=== PATIENT | male | born 1955 | race Hispanic/Latino ===

== ENCOUNTER 2018-03-23 15:18 | Inpatient (IN) | payer OTHER ==
--- NOTE | 2018-03-23 17:24 | C.PDOC ---
History Of Present Illness 62 y/o male presents to ED requesting detox from ETOH. Patient reports last drink earlier today and denies chest pain, nausea, vomiting, tremors, SI/HI or any other complaints at this time. <Jai Roach - Last Filed: 03/23/18 17:26> History Per: Patient History/Exam Limitations: no limitations Onset/Duration Of Symptoms: Days Current Symptoms Are (Timing): Still Present Suicide/Self Injury Attempted (Context): None Modifying Factor(s): Alcohol <Jai Roach - Last Filed: 03/23/18 17:26> <Praneeth Renee - Last Filed: 03/24/18 01:46> Time Seen by Provider: 03/23/18 16:40 Chief Complaint (Nursing): Substance Abuse Past Medical History Reviewed: Historical Data, Nursing Documentation, Vital Signs Vital Signs: Last Vital Signs Temp 98.2 F 03/23/18 16:12 Pulse 96 H 03/23/18 16:12 Resp 15 03/23/18 16:12 BP Pulse Ox 96 03/23/18 16:12 - Medical History PMH: No Chronic Diseases Surgical History: No Surg Hx Family History: States: No Known Family Hx - Social History Hx Alcohol Use: Yes Hx Substance Use: No - Immunization History Hx Tetanus Toxoid Vaccination: No Hx Influenza Vaccination: No Hx Pneumococcal Vaccination: No <Jai Roach - Last Filed: 03/23/18 17:26> Vital Signs: Last Vital Signs Temp 98 F 03/23/18 20:35 Pulse 90 03/24/18 01:30 Resp 16 03/24/18 01:30 BP 118/70 03/24/18 01:30 Pulse Ox 98 03/24/18 01:30 <Praneeth Renee - Last Filed: 03/24/18 01:46> Review Of Systems Except As Marked, All Systems Reviewed And Found Negative. Cardiovascular: Negative for: Chest Pain Gastrointestinal: Negative for: Nausea, Vomiting Psych: Positive for: Other (Substance abuse). Negative for: Suicidal ideation, Withdrawal <Jai Roach - Last Filed: 03/23/18 17:26> Physical Exam - Physical Exam Additional Physical Exam Comments: Constitutional: No acute distress. ETOH on breath Head: Normocephalic. Atraumatic. Eyes: PERRL. ENT: Moist mucous membranes. Neck: Supple. Cardiovascular: Regular rate. Radial pulse 2+ bilaterally. Chest: No tenderness. Respiratory: Clear to auscultation bilaterally. GI: Soft. Nontender. Nondistended. Back: No CVA tenderness. Musculoskeletal: No tenderness or swelling of extremities. Skin: No rash. Neurologic: Alert, no focal deficit. <Jai Roach - Last Filed: 03/23/18 17:26> ED Course And Treatment O2 Sat by Pulse Oximetry: 96 (RA) Pulse Ox Interpretation: Normal <Jai Roach - Last Filed: 03/23/18 17:26> - Laboratory Results Result Diagrams: 03/23/18 19:32 03/23/18 19:32 Pulse Ox Interpretation: Normal <Praneeth Renee - Last Filed: 03/24/18 01:46> Disposition <Jai Roach Last Filed: 03/23/18 17:26> Discussed With : Davian Mccabe Comment: accepted the pt on his service and took over the care at 1:42 AM Doctor Will See Patient In The: Hospital Counseled Patient/Family Regarding: Studies Performed, Diagnosis - Disposition Disposition Time: 01:00 - POA Present On Arrival: None <Praneeth Renee - Last Filed: 03/24/18 01:46> - Disposition Disposition: HOSPITALIZED Condition: FAIR Forms: [facility] (Lithuanian) - Clinical Impression Clinical Impression: Alcohol use disorder - Scribe Statement The provider has reviewed the documentation as recorded by the Margaretibyecenia Isabel All medical record entries made by the Scribe were at my direction and personally dictated by me. I have reviewed the chart and agree that the record accurately reflects my personal performance of the history, physical exam, medical decision making, and the department course for this patient. I have also personally directed, reviewed, and agree with the discharge instructions and disposition. <Jai Roach - Last Filed: 03/23/18 17:26> Decision To Admit <Jai Roach Filed: 03/23/18 17:26> - Pt Status Changed To: Hospital Disposition Of: Inpatient - Admit Certification Admit to Inpatient:: After my assessment, the patient will require hospitalization for at least two midnights. This is because of the severity of symptoms shown, intensity of services needed, and/or the medical risk in this patient being treated as an outpatient. - InPatient: Physician Admission Certification: I certify that this patient requires 2 or more midnights of care for the following reason:: After my assessment, the patient will require hospitalization for at least two midnights. This is because of the severity of symptoms shown, intensity of services needed, and/or the medical risk in this patient being treated as an outpatient. - . Bed Request Type: Detox Admitting Physician: Davian Mccabe <Praneeth Renee - Last Filed: 03/24/18 01:46> - . Patient Diagnosis: Alcohol use disorder
[2018-03-23 19:42] LABS: BASO % 0.6 % (0.0-2.0); EOS # 0.1 K/uL (0.0-0.7); EOS % 2.1 % (0.0-4.0); LYMPH # 1.8 K/uL (1.0-4.3); LYMPH % 38.9 % (20.0-40.0); MEAN CELL VOLUME 95.5 fL (80.0-94.0); MEAN CORPUSCULAR HEMOGLOBIN 32.4 pg (27.0-31.0); MEAN CORPUSCULAR HGB CONC 33.9 g/dL (33.0-37.0); MEAN PLATELET VOLUME 6.4 fL (7.2-11.7); MONO # 0.4 K/uL (0.0-0.8); MONO % 8.5 % (0.0-10.0); NEUT # 2.3 K/uL (1.8-7.0); NEUT % 49.9 % (50.0-75.0); NRBC % 0.2 % (0.0-2.0); RBC 3.7 Mil/uL (4.40-5.90); RED CELL DISTRIBUTION WIDTH 14.9 % (11.5-14.5); WHITE BLOOD COUNT 4.7 K/uL (4.8-10.8)
[2018-03-23 19:51] LABS: ALB/GLOB RATIO 1.2 (1.0-2.1); ALBUMIN 3.6 g/dL (3.5-5.0); ALT/SGPT 37 U/L (21-72); AST/SGOT 23 U/L (17-59); BLOOD UREA NITROGEN 7 mg/dL (9-20); CALCIUM 8.2 mg/dl (8.6-10.4); GFR NON-AFRICAN AMERICAN > 60
[2018-03-23 23:07] LABS: BARBITURATES, UR NEGATIVE (NEGATIVE); OPIATES, UR NEGATIVE (NEGATIVE); PHENCYCLIDINE, UR NEGATIVE (NEGATIVE)
[2018-03-23 23:17] LABS: URINE BILIRUBIN NEGATIVE (NEGATIVE); URINE BLOOD NEGATIVE (NEGATIVE); URINE CLARITY Clear (Clear); URINE COLOR Straw (YELLOW); URINE GLUCOSE (UA) NORMAL (Normal); URINE LEUKOCYTE ESTERASE NEG Leu/uL (Negative); URINE PROTEIN NEGATIVE (NEGATIVE); URINE UROBILINOGEN NORMAL mg/dL (0.2-1.0)
[2018-03-23 23:41] LABS: BENZODIAZEPINES, UR POSITIVE (NEGATIVE)
--- NOTE | 2018-03-24 01:59 | PCM.BM ---
<Lorenza Murguia M - Last Filed: 03/24/18 01:57> Treatment Plan Problems - Problems identified on initial assessmt Ineffective Coping Skills Date Initiated: 03/24/18 Time Initiated: 01:58 Assessment reference: NA Status: Active Treatment assets and liabiliti Patient Assests: ADL independent Patient Liabilities: financial problems, relationship conflicts, substance abuse, other - Milieu Protocol Maintain good personal hygiene: daily Encourage regular showers, daily Remind patient to perform daily oral care, daily Assist patient to perform ADL's Conduct patient checks and document Observation sheet: Q15 minutes Maintain personal safety: every shift Educate patient to report safety concerns to staff, every shift Monitor environment for contraband/sharps Medication safety: Monitor for expected outcome, potential side effects: every shift, Assess barriers to learning: every shift, Assess readiness for medication education: every shift <Belen Linton - Last Filed: 03/24/18 13:04> - Diagnosis (1) Alcohol use disorder Status: Acute Interventions: 03/24/18 13:04 * Assess 7x/week regarding severity of withdrawal * Educate regarding risks, benefits, side effects and alternatives of medications * Use Motivational Interviewing for abstinence * Use CBT for relapse prevention * Medication management for withdrawal symptoms * Encourage medication assisted treatment *
[2018-03-24] MEDS: Multiple Vitamins Tab PO SCH (09:54)
--- NOTE | 2018-03-24 13:04 | PCM.PSYCH ---
Initial Psychiatric Evaluation - Initial Psychiatric Evaluation Type of Admission: Voluntary Legal Status: Capacity Chief Complaint (in patient's own words): "Alcohol" History of Present Illness and Precipitating Events: Patient is a 62-year-old male, with adult children, unemployed and homeless. 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 He used to live in [place]. Patient is here for detox from alcohol. Patient states that he drinks a pint of vodka and several cans of beer every day in the last 8 months. He denies any current drug use or smoking. He admits using 8 balls of cocaine by sniffing for 4 years in . He also admits smoking marijuana in . He reports that he quitted smoking cigarettes 35 years ago and never smoked again. Patient has tried detox 3x in the past. The first detox was in [facility] in August 2017, the second detox was in [facility] in September 2017, and the last detox was in [facility] about 6 weeks ago. Patient reports that each time he relapsed and started drinking again after 2-3 days he left the detox center. He denies any past rehabilitations or hospitalizations. He is planning to attend a 30-day rehab program after finishing detox. He complains about tremors on his hands and other withdrawal sxs. He seems to minimize the risks and need for more rigorous treatment. Psych hx: Anxiety and depression. No admissions. No dylan attempts. Medical hx: denies Family hx: denies Current Medications: Active Medications Generic Name Dose Route Start Last Admin Trade Name Freq PRN Reason Stop Dose Admin Chlordiazepoxide 25 mg 03/24/18 03:24 03/24/18 09:54 Librium PO 25 mg Q4H PRN Administration Alcohol Withdrawal Chlordiazepoxide 25 mg 03/24/18 10:20 03/24/18 11:55 Librium PO 03/29/18 05:59 25 mg Q6 PARVIN Administration Taper Clonidine HCl 0.1 mg 03/24/18 02:10 Catapres PO Q8H PRN Withdrawal Symptoms Folic Acid 1 mg 03/24/18 10:00 03/24/18 09:54 Folic Acid PO 1 mg DAILY PARVIN Administration Gabapentin 300 mg 03/25/18 10:00 Neurontin PO BID PARVIN Hydroxyzine HCl 25 mg 03/24/18 02:11 Atarax PO Q6H PRN Agitation Ibuprofen 400 mg 03/24/18 03:26 Motrin Tab PO Q6 PRN Pain, moderate (4-7) Multivitamins 1 tab 03/24/18 10:00 03/24/18 09:54 Hexavitamin PO 1 tab DAILY PARVIN Administration Thiamine HCl 100 mg 03/24/18 10:00 03/24/18 09:54 Vitamin B1 Tab PO 100 mg DAILY PARVIN Administration Trazodone HCl 50 mg 03/24/18 02:11 Desyrel PO HS PRN Insomnia Past Psychiatric History - Past Psychiatric History Pertinent Medical Hx (Current Medical&Sleep Prob, Allergies): Allergies Allergy/AdvReac Type Severity Reaction Status Date / Time No Known Allergies Allergy Verified 03/23/18 16:12 Review of Systems - Psychiatric Psychiatric: Abnormal Sleep Pattern, Anhedonia, Anxiety, Change in Appetite, Depression, Difficulty Concentrating, Irritability. absent: Hallucinations, Homicidal Ideation, Paranoia, Suicidal Ideation Mental Status Examination - Personal Presentation Personal Presentation: Looks older than stated age - Affect Affect: Constricted - Motor Activity Motor Activity: Calm - Reliability in Providing Information Reliability in Providing Information: Fair - Speech Speech: Organized - Mood Mood: Depressed, Anxious - Formal Thought Process Formal Thought Process: No Impairment - Cognitive Functions Orientation: Person, Place, Situation, Time Sensorium: Alert Attention/Concentration: Easily distracted Abstract Thinking: [place] Estimate of Intelligence: Average Judgement: Intact, as evidence by: Insight regarding need for hospitalization Memory: Recent intact, as evidence by: Ability to recall events of the day, Remote impaired as evidenced by: Inability to recall sig life events - Risk Risk: Withdrawal, Diminished functioning - Strength & Assets Inventory Strength & Assets Inventory: Cooperative - Limitations Limitations: Living alone DSM 5 DX - DSM 5 DSM 5 Diagnosis: Alcohol withdrawal Alcohol use d/o - severe Anxiety d/o - unspecified Personality d/o - unspecified - Recommended/Plan of Treatment Treatment Recommendations and Plan of Treatment: Taper with Librium Gabapentin for augmentation if needed As needed medications All risks, benefits and alternatives of the meds discussed, and the pt agreed and understood. Attend groups and activities Supportive therapy and psychoeducation [place] for abstinence CBT for relapse prevention Encourage MAT Refer to rehab or IOP, and self-help groups Teach healthy lifestyle methods, i.e. diet, exercise, meditation 35 min Projected ELOS: 4-5 days Prognosis: good w treatment
[2018-03-25] MEDS: Multiple Vitamins Tab PO SCH (09:29)
--- NOTE | 2018-03-25 14:24 | PCM.PYCHPN ---
Psychiatric Progress Note - Psychiatric Progress Note Patient seen today, length of contact: 16 min Patient Chief Complaint: "Better today" Problems Identified/Issues Discussed: The pt is seen, chart reviewed, case discussed with staff. The pt is compliant with medications and reports no side-effects. Symptoms are improving but needs more time to stabilize. Pt attends groups and activities. Support given, psycho-education provided. After care discussed. Medication Change: Yes (Detox changes daily) Medical Record Reviewed: Yes Mental Status Examination - Cognitive Function Orientation: Person, Place, Situation, Time Memory: Intact Attention: Poor Concentration: Poor Association: WNL Fund of Knowledge: WNL - Mood Mood: Depressed, Anxious - Affect Affect: Constricted - Speech Speech: Appropriate - Formal Thought Process Formal Thought Process: No Impairment - Suicidal Ideation Suicidal Ideation: No - Homicidal Ideation Homicidal Ideation: No Goal/Treatment Plan - Goal/Treatment Plan Need for Continued Stay: Discharge may exacerbated symptoms, Severe functional impairment Progress Toward Problem(s) and Goals/Treatment Plan: Taper with Librium Gabapentin for augmentation if needed As needed medications All risks, benefits and alternatives of the meds discussed, and the pt agreed and understood. Attend groups and activities Supportive therapy and psychoeducation [place] for abstinence CBT for relapse prevention Encourage MAT Refer to rehab or IOP, and self-help groups Teach healthy lifestyle methods, i.e. diet, exercise, meditation
[2018-03-26] MEDS: Multiple Vitamins Tab PO SCH (09:32)
--- NOTE | 2018-03-26 17:59 | PCM.PYCHPN ---
Psychiatric Progress Note - Psychiatric Progress Note Patient seen today, length of contact: 15 minutes Patient Chief Complaint: I'm feeling much better. Problems Identified/Issues Discussed: Patient seen, chart reviewed, case discussed with the staff. Issues related to illness and treatment were discussed with the patient and staff. Reported compliant with treatment with no adverse affects. Tolerating treatment very well. Patient reported feeling0 much better with the treatment. Calm and cooperative. Awake, alert and oriented 3. No psychomotor activity, good eye contact, memory intact. Aftercare discussed with the patient. Denied any delusions, auditory or visual hallucinations, suicidal ideations or homicidal ideations at the time of evaluation. Medical Problems: None reported Diagnostic Results: Reviewed DSM 5 Symptoms Update: Improving with treatment Medication Change: No Medical Record Reviewed: Yes Mental Status Examination - Cognitive Function Orientation: Person, Place, Situation, Time Memory: Intact Attention: WNL Concentration: WNL Association: WN Fund of Knowledge: [place] Decription of patient's judgement and insights: Good - Mood Mood: Anxious - Affect Affect: Other (Appropriate) - Speech Speech: Appropriate - Formal Thought Process Formal Thought Process: No Impairment Psychotic Thoughts and Behaviors: None - Suicidal Ideation Suicidal Ideation: No - Homicidal Ideation Homicidal Ideation: No Goal/Treatment Plan - Goal/Treatment Plan Need for Continued Stay: Remain at risks for inpatient hospitalization, Discharge may exacerbated symptoms, Severe functional impairment Progress Toward Problem(s) and Goals/Treatment Plan: Patient/staff education. Supportive therapy. CBT for relapse prevention. ID for abstinence. Continue treatment as before. Patient wants to go to [facility] for follow-up care after discharge from the hospital. Estimated Date of D/C: 03/27/18 - Smoking Cessation Smoking Cessation Initiated: No
[2018-03-27 06:17] VITALS: TEMP 97.4; O2SAT 96
[2018-03-27] MEDS: Multiple Vitamins Tab PO SCH (09:29)
[2018-03-27 11:18] VITALS: BP 122/82; PULSE 90; RESP 19
--- NOTE | 2018-03-27 19:01 | PCM.PYCHDC ---
Mental Status Examination - Mental Status Examination Orientation: Person, Place, Situation, Time Memory: Intact Mood: Neutral Affect: Other (Appropriate) Speech: Appropriate Attention: WNL Concentration: WNL Association: WNL Fund of Knowledge: WNL Formal Thought Process: No Impairment Description of patient's judgement and insight: Good Psychotic Thoughts and Behaviors: None Suicidal Ideation: No Current Homicidal Ideation?: No Discharge Summary - Discharge Note Reason for Hospitalization: Alcohol use disorder severe Anxiety disorder unspecified Personality disorder unspecified Laboratory Data: Reviewed Consultations:: List each consultation separately and include: 1. Reason for request. 2. Findings. 3. Follow-up Summary of Hospital Course include:: 1. Description of specific treatment plan utilized for patients during their course of treatmen. 2. Summarize the time- course for resolution of acute symptoms and/or regressed behaviors. 3. Describe issues identified and worked on during hospitalization. 4. Describe medication utilized. 5. Describe medical problems identified and treated. 6. Reassessment of suicide risk Summary of Hospital Course: Patient is a 62-year-old male, with adult children, unemployed and homeless. 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 He used to live in [place]. Patient is here for detox from alcohol. Patient states that he drinks a pint of vodka and several cans of beer every day in the last 8 months. He denies any current drug use or smoking. He admits using 8 balls of cocaine by sniffing for 4 years in 1980s. He also admits smoking marijuana in 1970s. He reports that he quitted smoking cigarettes 35 years ago and never smoked again. Patient has tried detox 3x in the past. The first detox was in [facility] in August 2017, the second detox was in [facility] in September 2017, and the last detox was in [facility] about 6 weeks ago. Patient reports that each time he relapsed and started drinking again after 2-3 days he left the detox center. He denies any past rehabilitations or hospitalizations. He is planning to attend a 30-day rehab program after finishing detox. He complains about tremors on his hands and other withdrawal sxs. He seems to minimize the risks and need for more rigorous treatment. Psych hx: Anxiety and depression. No admissions. No dylan attempts. Medical hx: denies Family hx: denies During his stay in the hospital, patient was treated with Librium taper for alcohol withdrawal symptoms. He was also treated with other when necessary medications. Patient was attending groups and other activities on the unit. With the above treatment patient started feeling better. Today patient was stable and ready for discharge. At the time of evaluation and discharge, patient was awake alert oriented 3, calm and cooperative, had no delusions, no auditory or visual hallucinations, no suicidal ideations or homicidal ideations. Patient was discharged in a stable condition. - Final Diagnosis (DSM 5) Condition upon Discharge: FAIR Disposition: HOME/ ROUTINE Follow-up Treatment Plan: Patient will go to [facility] for follow-up care after discharge from the hospital. - Smoking Cessation Smoking Cessation Medication prescribed: No - Antipsychotic Medications Pt discharged on 2 or more routine antipsychotic medications: No
== END 2018-03-27 11:05 | disposition home or self-care (01) | DRG 751 ==
LOC: C.ER 15:18 → C.7D 03-24 01:41
PROC: HZ2ZZZZ Detoxification Services for Substance Abuse Treatment (ICD-10-PCS; principal; 2018-03-24)
PROC: HZ52ZZZ Individual Psychotherapy for Substance Abuse Treatment, Cognitive-Behavioral (ICD-10-PCS; 2018-03-24)
PROC: HZ59ZZZ Individual Psychotherapy for Substance Abuse Treatment, Supportive (ICD-10-PCS; 2018-03-24)
PROC: HZ56ZZZ Individual Psychotherapy for Substance Abuse Treatment, Psychoeducation (ICD-10-PCS; 2018-03-24)
PROC: HZ42ZZZ Group Counseling for Substance Abuse Treatment, Cognitive-Behavioral (ICD-10-PCS; 2018-03-24)
PROC: HZ46ZZZ Group Counseling for Substance Abuse Treatment, Psychoeducation (ICD-10-PCS; 2018-03-24)
PROC: GZHZZZZ Group Psychotherapy (ICD-10-PCS; 2018-03-24)
PROC: GZ58ZZZ Individual Psychotherapy, Cognitive-Behavioral (ICD-10-PCS; 2018-03-24)
PROC: GZ56ZZZ Individual Psychotherapy, Supportive (ICD-10-PCS; 2018-03-24)
DX: F10.230 Alcohol dependence with withdrawal, uncomplicated (principal); Y90.8 Blood alcohol level of 240 mg/100 ml or more; F41.9 Anxiety disorder, unspecified; F32.9 Major depressive disorder, single episode, unspecified; F60.9 Personality disorder, unspecified; Z59.0 Homelessness